=== PATIENT | female | born 1960 | race Caucasian/White ===

== ENCOUNTER 2024-12-10 18:12 | Inpatient (IN) | payer BC, OTHER ==
[~2024-12-10] VITALS: Ht 165.1 cm; Wt 72.6 kg
[~2024-12-10 18:12] MED LIST: ALPR2TAB7 PO; ASPI-1169 PO; DIAZ5TAB4 PO; GABA-534 PO; HYDR-4354 PO
[2024-12-10] MEDS: IV NS 0.9% 1,000 ML BAG IV ONE ×2 (19:09→21:22)
[2024-12-10 19:15] LABS: BASOPHILS # (AUTO) 0.1 K/uL (0.0-0.2); BASOPHILS % (AUTO) 0.3 % (0.0-2.0); EOSINOPHILS # (AUTO) 0.2 K/uL (0.0-0.7); HEMATOCRIT 44 % (33-45); HEMOGLOBIN 15.4 g/dL (11.5-14.8); LYMPHOCYTES % (AUTO) 8.8 % (20.0-44.0); MEAN CORPUSCULAR HEMOGLOBIN 32 PG (26.0-33.0); MEAN CORPUSCULAR HGB CONC 35 g/dl (31.0-36.0); MEAN CORPUSCULAR VOLUME 90 fL (82-100); MONOCYTES # (AUTO) 2.7 K/uL (0.1-1.30); MONOCYTES % (AUTO) 11.6 % (2.0-12.0); NEUTROPHILS # (AUTO) 17.9 K/uL (1.8-8.9); NEUTROPHILS % (AUTO) 78.3 % (43.0-81.0); PLATELET COUNT (AUTO) 461 K/uL (150-450); RED BLOOD CELL COUNT(AUTO) 4.83 MIL/uL (4.0-5.2); RED CELL DISTRIBUTION WIDTH 14.4 % (11.5-15.0); WHITE BLOOD COUNT (AUTO) 22.9 K/uL (4.3-11.0)
[2024-12-10 19:29] LABS: ALCOHOL, BLOOD < 3 mg/dL (0-10); CALCIUM, SERUM 9.8 mg/dL (8.5-10.1); CARBON DIOXIDE 32 mmol/L (21-32); GLUCOSE 172 mg/dL (74-106); UREA NITROGEN, BLOOD 27 mg/dL (7-18)
[2024-12-10 19:37] LABS: CHLORIDE 84 mmol/L (98-107); SODIUM SERUM 127 mmol/L (136-145)
[2024-12-10] MEDS ORDERED: Magnesium 1GM/D5W 100ML PREMIX 100 ML IV SCH (20:00)
[2024-12-10] MEDS: POTASSIUM CL. PREMIX PERIPHER. 50 ML IV SCH (20:00)
[2024-12-10 20:12] LABS: ANISOCYTOSIS 1+; BAND % (MANUAL) 1 % (0.0-5.0); EOSINOPHILS % (MANUAL) 2 % (0-4); LYMPHOCYTES % (MANUAL) 13 % (16-48); MONOCYTES % (MANUAL) 8 % (0-11.0); NEUTROPHILS % (MANUAL) 76 (42-76); PLATELET ESTIMATE INCREASED
[2024-12-10] MEDS ORDERED: ACETAMINOPHEN 325 MG TABLET PO PRN (20:30)
[2024-12-10] MEDS: CHLORDIAZEPOXIDE HCL 25 MG CAPSULE PO SCH (20:30)
[2024-12-10] MEDS ORDERED: POTASSIUM CHLORIDE 20 MEQ TAB.PRT.SR PO SCH (20:30)
[2024-12-10] MEDS ORDERED: ONDANSETRON HCL/PF 4 MG/2 ML VIAL IVP PRN (20:30)
[2024-12-10] MEDS ORDERED: MAGNESIUM HYDROXIDE 30 ML UDC PO PRN (20:30)
[2024-12-10] MEDS ORDERED: LORAZEPAM 1 MG TABLET PO PRN (20:30)
[2024-12-10] MEDS ORDERED: IOHEXOL-350 100 ML VIAL IV ONE (21:03)
[2024-12-10] MEDS ORDERED: CT SWABBABLE VALVE TRANS SET 1 EA INFUS.SET MC ONE (21:03)
[2024-12-10] MEDS ORDERED: IV NS 0.9% 250 ML IV ONE (21:06)
[2024-12-10] MEDS ORDERED: CEFEPIME 1 GM VIAL ONE (21:13)
[2024-12-10 21:16] LABS: ALBUMIN 4.2 g/dL (3.4-5.0); BILIRUBIN,DIRECT 0.4 mg/dL (0.0-0.2); BILIRUBIN,TOTAL 0.9 mg/dL (0.2-1.0); MAGNESIUM 2.7 mg/dL (1.8-2.4); TOTAL PROTEIN, SERUM 7.3 g/dL (6.4-8.2)
[2024-12-10] MEDS ORDERED: POTASSIUM CHLORIDE 20 MEQ TAB.PRT.SR PO ONE (21:27)
[2024-12-10] MEDS: CEFEPIME 1 GM in IV D5W 50 ML IV ONE (22:00)
[2024-12-10] MEDS ORDERED: POTASSIUM CHLORIDE 10 MEQ TABLET.SA ONE (22:13)
[2024-12-10] MEDS: POTASSIUM CHLORIDE 10 MEQ TABLET.SA PO SCH (23:25)
[2024-12-10] MEDS: Magnesium 1GM/D5W 100ML PREMIX 100 ML IV SCH (23:48)
[2024-12-11] VITALS: BP 138/86; TEMP 98.6; O2SAT 98
[2024-12-11] MEDS ORDERED: Thiamine 100 MG/ML VIAL ONE ×3 (01:11→01:19)
[2024-12-11] MEDS: DOXYCYCLINE HYCLATE (100 MG) 100 MG TABLET PO SCH ×2 (01:15→13:03)
[2024-12-11] MEDS: Thiamine 500 MG in IV D5W 50 ML IV SCH (01:25)
[2024-12-11 03:35] LABS: APPEARANCE,URINE CLEAR (CLEAR); BILIRUBIN,URINE NEGATIVE (NEGATIVE); BLOOD, URINE NEGATIVE Ery/uL (NEGATIVE); COLOR,URINE YELLOW (YELLOW); KETONES,URINE TRACE mg/dL (NEGATIVE); LEUKOCYTE ESTERASE ,URINE NEGATIVE (NEGATIVE); NITRITE, URINE NEGATIVE (NEGATIVE); PROTEIN,URINE TRACE mg/dl (NEGATIVE); UGLUCOSE NEGATIVE (NEGATIVE)
[2024-12-11 03:44] LABS: ADD URINE CULTURE NO; BACTERIA,URINE Rare /HPF (None Seen); RBC,URINE 0-2 /HPF (0-2); SQUAMOUS EPITHELIAL CELL,UR Few /HPF (None Seen); WBC,URINE 0-2 /HPF (0-3)
[2024-12-11 03:46] LABS: AMPHETAMINE, URINE NEGATIVE (NEGATIVE); BARBITURATE, URINE NEGATIVE (NEGATIVE); BENZODIAZEPINE, URINE NEGATIVE (NEGATIVE); CANNABINOID, URINE POSITIVE (NEGATIVE); COCCAINE, URINE NEGATIVE (NEGATIVE); OPIATE, URINE NEGATIVE (NEGATIVE); PHENCYCLIDINE SCREEN,URINE NEGATIVE (NEGATIVE)
[2024-12-11 04:00] VITALS: BP 135/84; TEMP 98.6; O2SAT 100
[2024-12-11] MEDS ORDERED: CEFEPIME 1 GM VIAL ONE (05:41)
[2024-12-11] MEDS: IV NS 0.9% 1,000 ML IV PRN (05:47)
[2024-12-11] MEDS: CEFEPIME 2 GM in IV D5W 100 ML IV SCH (05:47)
[2024-12-11 06:58] LABS: BASOPHILS % (AUTO) 0.1 % (0.0-2.0); EOSINOPHILS # (AUTO) 0.3 K/uL (0.0-0.7); EOSINOPHILS % (AUTO) 1.6 % (0.0-6.0); HEMATOCRIT 40 % (33-45); HEMOGLOBIN 14.4 g/dL (11.5-14.8); LYMPHOCYTES % (AUTO) 10.9 % (20.0-44.0); MEAN CORPUSCULAR HEMOGLOBIN 33 PG (26.0-33.0); MEAN CORPUSCULAR HGB CONC 36 g/dl (31.0-36.0); MEAN CORPUSCULAR VOLUME 91 fL (82-100); MONOCYTES # (AUTO) 2.4 K/uL (0.1-1.30); MONOCYTES % (AUTO) 12.9 % (2.0-12.0); NEUTROPHILS % (AUTO) 74.5 % (43.0-81.0); PLATELET COUNT (AUTO) 368 K/uL (150-450); RED BLOOD CELL COUNT(AUTO) 4.42 MIL/uL (4.0-5.2); RED CELL DISTRIBUTION WIDTH 14.4 % (11.5-15.0); WHITE BLOOD COUNT (AUTO) 18.7 K/uL (4.3-11.0)
[2024-12-11 07:40] LABS: THYROID STIMULATING HORMONE 16.89 uIU/mL (0.358-3.74)
[2024-12-11 08:00] VITALS: BP 141/81; TEMP 97.7; O2SAT 98
[2024-12-11 08:22] LABS: CALCIUM, SERUM 10.2 mg/dL (8.5-10.1); CREATININE 0.8 mg/dL (0.6-1.3); MAGNESIUM 3.2 mg/dL (1.8-2.4); PHOSPHORUS 2.7 mg/dL (2.5-4.9); POTASSIUM 3.5 mmol/L (3.5-5.1)
[2024-12-11] MEDS: ENOXAPARIN SODIUM 40 MG/0.4 ML DISP.SYRIN SQ SCH (08:45)
[2024-12-11] MEDS: ASPIRIN 81 MG TAB.CHEW PO SCH (08:45)
[2024-12-11] MEDS: FOLIC ACID 1 MG TABLET PO SCH (08:46)
[2024-12-11] MEDS: PANTOPRAZOLE 40 MG TABLET.DR PO SCH (08:48)
[2024-12-11] MEDS ORDERED: THIAMINE HCL 100 MG TABLET PO SCH (09:00)
[2024-12-11] MEDS ORDERED: ESZO2TAB22 PO (09:52)
[2024-12-11] MEDS ORDERED: ATOR40TA PO (09:52)
[2024-12-11] MEDS ORDERED: HYDR50TA61 PO (09:52)
[2024-12-11] MEDS ORDERED: GABA600T12 PO (09:52)
[2024-12-11] MEDS ORDERED: METO-357 PO (09:52)
[2024-12-11] MEDS ORDERED: QUET50TA PO (09:52)
[2024-12-11 11:22] LABS: CHOLESTEROL 202 mg/dL (<200); HDL CHOLESTEROL 59 mg/dL (40-60); LDL 124 mg/dL (0-99); TRIGLYCERIDES 127 mg/dL (30-150)
[2024-12-11] MEDS: NEOMY SULF/BACITRAC ZN/POLY 15 GM TUBE TP SCH (11:35)
[2024-12-11 12:00] VITALS: BP 137/82; TEMP 98.2; O2SAT 99
[2024-12-11] MEDS ORDERED: hydrOXYzine 10 MG TABLET PO PRN (12:30)
[2024-12-11] MEDS ORDERED: GABAPENTIN 400 MG CAPSULE PO SCH (13:00)
[2024-12-11] MEDS ORDERED: ZOLPIDEM TARTRATE 5 MG TABLET PO PRN (13:00)
[2024-12-11] MEDS: METOPROLOL SUCCINATE 50 MG TAB.SR.24H PO SCH (13:01)
[2024-12-11] MEDS: LEVOTHYROXINE SODIUM 50 MCG TABLET PO SCH (13:02)
[2024-12-11 16:00] VITALS: BP 135/79; TEMP 98; O2SAT 96
[2024-12-11] MEDS ORDERED: CHLORDIAZEPOXIDE HCL 25 MG CAPSULE PO SCH ×2 (16:00→21:00)
[2024-12-11] MEDS: GABAPENTIN 300 MG CAPSULE PO SCH (16:50)
[2024-12-11 20:00] VITALS: BP 137/81; TEMP 97.7; O2SAT 95
[2024-12-11] MEDS: QUETIAPINE FUMARATE 25 MG TABLET PO SCH (22:00)
[2024-12-11] MEDS ORDERED: ATORVASTATIN 40 MG TABLET PO SCH (22:00)
[2024-12-12] VITALS: BP 96/67; TEMP 97.5; O2SAT 100
[2024-12-12 04:00] VITALS: BP 137/83; TEMP 97.8; O2SAT 100
[2024-12-12 07:51] LABS: BASOPHILS # (AUTO) 0.1 K/uL (0.0-0.2); BASOPHILS % (AUTO) 0.4 % (0.0-2.0); EOSINOPHILS # (AUTO) 0.6 K/uL (0.0-0.7); HEMATOCRIT 37 % (33-45); HEMOGLOBIN 12.9 g/dL (11.5-14.8); LYMPHOCYTES # (AUTO) 2.4 K/uL (0.8-4.8); LYMPHOCYTES % (AUTO) 17.3 % (20.0-44.0); MEAN CORPUSCULAR HEMOGLOBIN 32 PG (26.0-33.0); MEAN CORPUSCULAR HGB CONC 34 g/dl (31.0-36.0); MEAN CORPUSCULAR VOLUME 93 fL (82-100); MONOCYTES # (AUTO) 1.3 K/uL (0.1-1.30); MONOCYTES % (AUTO) 9.1 % (2.0-12.0); NEUTROPHILS # (AUTO) 9.7 K/uL (1.8-8.9); NEUTROPHILS % (AUTO) 69.2 % (43.0-81.0); PLATELET COUNT (AUTO) 364 K/uL (150-450); RED BLOOD CELL COUNT(AUTO) 4.04 MIL/uL (4.0-5.2); RED CELL DISTRIBUTION WIDTH 14.6 % (11.5-15.0)
[2024-12-12 08:00] VITALS: BP 124/91; TEMP 97.6; O2SAT 99
[2024-12-12 08:06] LABS: CALCIUM, SERUM 8.9 mg/dL (8.5-10.1); CREATININE 0.7 mg/dL (0.6-1.3); MAGNESIUM 2.6 mg/dL (1.8-2.4); PHOSPHORUS 2.3 mg/dL (2.5-4.9); POTASSIUM 3.1 mmol/L (3.5-5.1)
[2024-12-12] MEDS: ATORVASTATIN 40 MG TABLET PO SCH (08:15)
[2024-12-12] MEDS: POTASSIUM CHLORIDE 20 MEQ TAB.PRT.SR PO SCH (11:03)
[2024-12-12] MEDS: POTASSIUM CHLORIDE 20 MEQ POWDER PACKET PO SCH (12:16)
[2024-12-12] MEDS: K PHOS NEUTRAL 250 MG TABLET PO ONE (15:12)
[2024-12-12 16:00] VITALS: BP 121/90; TEMP 97.5; O2SAT 99
[2024-12-12 20:00] VITALS: BP 128/71; TEMP 98; O2SAT 99
[2024-12-13 04:00] VITALS: BP 152/87; TEMP 98.2; O2SAT 99
[2024-12-13 07:53] LABS: CALCIUM, SERUM 8.8 mg/dL (8.5-10.1); CREATININE 0.7 mg/dL (0.6-1.3); PHOSPHORUS 2.5 mg/dL (2.5-4.9); POTASSIUM 3.4 mmol/L (3.5-5.1)
[2024-12-13 08:00] VITALS: BP 146/75; TEMP 97.9; O2SAT 99
[2024-12-13] MEDS: THIAMINE HCL 100 MG TABLET PO SCH (09:40)
[2024-12-13] MEDS: POTASSIUM CHLORIDE 20 MEQ TAB.PRT.SR PO ONE (09:46)
[2024-12-13 16:00] VITALS: BP 138/66; TEMP 97.9; O2SAT 68
[2024-12-13 20:00] VITALS: BP 140/77; TEMP 97.3; O2SAT 100
[2024-12-14 04:00] VITALS: BP 142/95; TEMP 97.8; O2SAT 98
[2024-12-14 08:00] VITALS: BP 151/78; TEMP 98.1; O2SAT 99
[2024-12-14 08:27] LABS: BASOPHILS # (AUTO) 0.1 K/uL (0.0-0.2); BASOPHILS % (AUTO) 0.7 % (0.0-2.0); EOSINOPHILS # (AUTO) 0.5 K/uL (0.0-0.7); EOSINOPHILS % (AUTO) 4.6 % (0.0-6.0); HEMATOCRIT 38 % (33-45); HEMOGLOBIN 12.9 g/dL (11.5-14.8); LYMPHOCYTES # (AUTO) 1.9 K/uL (0.8-4.8); LYMPHOCYTES % (AUTO) 18.9 % (20.0-44.0); MEAN CORPUSCULAR HEMOGLOBIN 34 PG (26.0-33.0); MEAN CORPUSCULAR HGB CONC 34 g/dl (31.0-36.0); MEAN CORPUSCULAR VOLUME 98 fL (82-100); MONOCYTES % (AUTO) 10.3 % (2.0-12.0); NEUTROPHILS # (AUTO) 6.6 K/uL (1.8-8.9); NEUTROPHILS % (AUTO) 65.5 % (43.0-81.0); PLATELET COUNT (AUTO) 319 K/uL (150-450); RED BLOOD CELL COUNT(AUTO) 3.82 MIL/uL (4.0-5.2); RED CELL DISTRIBUTION WIDTH 14.8 % (11.5-15.0); WHITE BLOOD COUNT (AUTO) 10.1 K/uL (4.3-11.0)
[2024-12-14 08:32] LABS: CALCIUM, SERUM 8.8 mg/dL (8.5-10.1); CREATININE 0.6 mg/dL (0.6-1.3); MAGNESIUM 1.4 mg/dL (1.8-2.4); PHOSPHORUS 2.5 mg/dL (2.5-4.9)
[2024-12-14] MEDS: MAGNESIUM OXIDE 400 MG TABLET PO ONE (09:27)
[2024-12-14] MEDS ORDERED: DOXY100T2 PO (11:23)
[2024-12-14] MEDS ORDERED: LEVO50TA PO (11:23)
[2024-12-14] MEDS ORDERED: Thiamine HCL PO (11:23)
[2024-12-14] MEDS ORDERED: CEFE2FRO IV (11:23)
[2024-12-14 16:00] VITALS: BP 128/73; TEMP 97.5; O2SAT 98
[2024-12-14 20:00] VITALS: BP 133/73; TEMP 97.7; O2SAT 98
[2024-12-15 04:00] VITALS: BP 105/72; TEMP 97.8; O2SAT 98
[2024-12-15 08:05] VITALS: BP 131/78; TEMP 98.1; O2SAT 99
[2024-12-15 08:34] VITALS: BP 131/78
[2024-12-15 08:38] LABS: CALCIUM, SERUM 8.9 mg/dL (8.5-10.1); CREATININE 0.6 mg/dL (0.6-1.3); POTASSIUM 3.7 mmol/L (3.5-5.1)
== END 2024-12-15 11:57 | DRG 871 ==
LOC: ER 18:40 → TELE1 22:23 → MEDSG1 12-12 09:56
PROVIDERS: ADMIT Nurse Practitioner Family; ATTEND Nurse Practitioner Acute Care
DX: A41.9 Sepsis, unspecified organism (principal); G92.8 Other toxic encephalopathy; J15.9 Unspecified bacterial pneumonia; J69.0 Pneumonitis due to inhalation of food and vomit; E87.1 Hypo-osmolality and hyponatremia; E51.2 Wernicke's encephalopathy; R47.01 Aphasia; E86.0 Dehydration; F10.129 Alcohol abuse with intoxication, unspecified; Y90.0 Blood alcohol level of less than 20 mg/100 ml; Z20.822 Contact with and (suspected) exposure to COVID-19; Z85.820 Personal history of malignant melanoma of skin; F32.A Depression, unspecified; Z79.82 Long term (current) use of aspirin; Z79.899 Other long term (current) drug therapy; M89.8X9 Other specified disorders of bone, unspecified site; I10 Essential (primary) hypertension; D64.9 Anemia, unspecified; D75.839 Thrombocytosis, unspecified; E05.90 Thyrotoxicosis, unspecified without thyrotoxic crisis or storm; E83.52 Hypercalcemia; R62.7 Adult failure to thrive; F12.10 Cannabis abuse, uncomplicated; E87.6 Hypokalemia; E86.9 Volume depletion, unspecified; R73.9 Hyperglycemia, unspecified
CPT/HCPCS: 36415; 70450-TC; 70496-TC; 70498-TC; 70551-TC; 71045-TC; 80048-TC; 80061-TC; 80076-TC; 81001; 83605-TC; 83735-TC; 84100-TC; 84439-TC; 84443-TC; 85025-TC; 87040-TC; 87081-TC; 92526; 92611-TC; 93307-TC; 97110-TC; 97112-TC; 97530-TC; 97535-TC; A4223; G0378; G0480; J0692; J1650; J3411; J3475; J3480; J7030; J7050; J7060; Q9967